=== PATIENT | female | born 1955 | race Caucasian/White ===

== ENCOUNTER → 2016-05-09 | Outpatient (REF) | payer OTHER ==
[2016-05-09 12:45] LABS: MICROSCOPIC INDICATED? MAN YES (NO)
[2016-05-09 12:52] LABS: BACTERIA, URINE SMALL AMOUNT; HYALINE CAST, URINE NONE SEEN /lpf (0-1); MICROSCOPIC EXAM PERFORMED; RBC, URINE 0-1 /hpf (0-3); SQUAMOUS EPITHELIAL CELL URINE SMALL AMOUNT /hpf (SMALL AMT)
== END ==
LOC: M LAB REF 12:15
DX: N20.0 Calculus of kidney (principal)

== ENCOUNTER → 2017-02-25 | Outpatient (REF) | payer OTHER | LOC: M LAB REF 12:52 | PROVIDERS: ATTEND Family Medicine | DX: R74.8 Abnormal levels of other serum enzymes (principal) ==

== ENCOUNTER 2017-12-24 04:57 | Emergency (ER) | payer OTHER ==
[2017-12-24 05:50] LABS: BASO # 0.1 10^3/uL (0.0-0.2); BASO % 0.5 % (0.0-1.0); EOS # 0.3 10^3/uL (0.0-0.50); EOS % 2.6 % (0.0-3.0); HEMATOCRIT 49.3 % (36.0-47.0); HEMOGLOBIN 16.5 g/dl (12.0-15.5); IMMATURE GRANULOCYTE % 0.5 % (0-3.0); LYMPH # 1.4 10^3/uL (1.5-4.5); LYMPH % 14.1 % (24.0-44.0); MEAN CORPUSCULAR HEMOGLOBIN 29.2 pg (27.0-33.0); MEAN CORPUSCULAR HGB CONC 33.5 g/dl (32.0-36.5); MEAN CORPUSCULAR VOLUME 87.3 fl (80.0-96.0); MONO # 0.6 10^3/uL (0.0-0.8); MONO % 6.1 % (0.0-5.0); NEUTROPHILS # 7.5 10^3/uL (1.8-7.7); NEUTROPHILS % 76.2 % (36.0-66.0); PLATELET COUNT, AUTOMATED 225 10^3/uL (150-450); RED BLOOD COUNT 5.65 10^6/uL (4.00-5.40); RED CELL DISTRIBUTION WIDTH 14.2 % (11.5-14.5); WHITE BLOOD COUNT 9.9 10^3/uL (4.0-10.0)
[2017-12-24 06:11] LABS: ANION GAP 9 MEQ/L (8-16); BLOOD UREA NITROGEN 15 MG/DL (7-18); CALCIUM LEVEL 9.2 MG/DL (8.8-10.2); CARBON DIOXIDE LEVEL 29 MEQ/L (21-32); CHLORIDE LEVEL 103 MEQ/L (98-107); CREATININE FOR GFR 0.78 MG/DL (0.55-1.30); GLOMERULAR FILTRATION RATE > 60.0 (>45); GLUCOSE, FASTING 100 MG/DL (70-100); POTASSIUM SERUM 3.8 MEQ/L (3.5-5.1); SODIUM LEVEL 141 MEQ/L (136-145)
[2017-12-24 06:23] LABS: AMYLASE 314 U/L (25-115); C REACTIVE PROTEIN QUANTITATIV 3.63 MG/DL (0.00-0.30)
[2017-12-24] MEDS: ACETAMINOPHEN 325 MG TAB PO (06:38)
[2017-12-24] MEDS ORDERED: ISOVUE-370 76% 100ML VIAL (Q9967) As Ordered (06:55)
[2017-12-24] MEDS ORDERED: CLINDAMYCIN 150 MG CAP PO (08:00)
== END 2017-12-24 08:19 | disposition home or self-care (01) ==
LOC: M ED 04:57
DX: K11.20 Sialoadenitis, unspecified (principal); Z79.899 Other long term (current) drug therapy; Z79.82 Long term (current) use of aspirin; Z88.0 Allergy status to penicillin
CPT/HCPCS: Q9967

== ENCOUNTER → 2018-02-19 | Outpatient (REF) | payer OTHER ==
[2018-02-19 13:59] LABS: C REACTIVE PROTEIN QUANTITATIV 1.15 MG/DL (0.00-0.30)
[2018-02-19 13:59] LABS: AMYLASE 32 U/L (25-115)
== END ==
LOC: M LAB REF 13:23
DX: R74.8 Abnormal levels of other serum enzymes (principal); R79.82 Elevated C-reactive protein (CRP)
CPT/HCPCS: 82150

== ENCOUNTER → 2018-04-21 | Outpatient (CLI) | payer OTHER ==
[~2018-04-21] MED LIST: AMLO5TAB6 PO; ASPI1TAB PO; ATOR1TAB21 PO; BYST10TA2 PO; CIPR1TAB20 PO; CLEO300C2 PO; HYDR25TAB PO; POTA10808 PO; QUIN1TAB4 PO
--- NOTE | 2018-04-21 09:35 | REP ---
Clinical: Hydronephrosis. Nephrolithiasis. Technique: Real time nelson scale ultrasound examination using curved array transducer. Findings: The right kidney is normal in contour, size, echogenicity and reniform shape measuring 10.6 x 5.4 x 5.0 cm and demonstrates a 14 mm nonobstructing calculus at the renal pelvis. No hydronephrosis, cystic or renal mass lesion. No perinephric collection. The left kidney is normal in contour, size, echogenicity and reniform shape measuring 11.1 x 5.1 x 6.6 cm. No hydronephrosis, nephrolithiasis, cystic or renal mass lesion. No perinephric collection. Bladder is normal. Impression: Nonobstructing 14 mm calculus in the right renal pelvis. No hydronephrosis. Electronically Signed by Moises Hawkins MD 04/21/2018 09:27 A
== END ==
LOC: M RAD 08:11
PROVIDERS: ATTEND Student in an Organized Health Care Education/Training Program
DX: N28.1 Cyst of kidney, acquired (principal)

== ENCOUNTER → 2020-10-17 | Outpatient (CLI) | payer OTHER ==
[~2020-10-17] MED LIST changes: +AMLO1TAB24 PO; -AMLO5TAB6 PO; -ASPI1TAB PO; +ASPI81TA26 PO; +HYDR-3490 PO; -HYDR25TAB PO
--- NOTE | 2020-10-17 10:43 | REP ---
INDICATION: KIDNEY STONE, RENAL CYST. COMPARISON: 04/21/2018 FINDINGS: Multiple ultrasonographic images of the right kidney show the right kidney to measure 10.8 x 5.7 x 4.4 cm. The renal cortical echotexture is unremarkable. There are no masses. There is good corticomedullary differentiation. There is no hydronephrosis. There are no perinephric fluid collections. Multiple ultrasonographic images of the left kidney show the left kidney to measure 11.7 x 5 x 5 cm. The renal cortical echotexture is unremarkable. There are no masses. There is good corticomedullary differentiation. There is no hydronephrosis. There are no perinephric fluid collections. There are 2 incidental sub cm sized anechoic structure seen in the inferior pole both of which exhibit posterior wall enhancement and increased through transmission and both consistent with simple cysts. IMPRESSION: Unremarkable renal ultrasonography. <Electronically signed by Herve Arteaga > 10/17/20 [id number]
== END ==
LOC: M RAD 08:44
PROVIDERS: ATTEND Urology
DX: N20.0 Calculus of kidney (principal)

== ENCOUNTER → 2021-01-03 | Outpatient (CLI) | payer OTHER ==
[2021-01-03 09:14] LABS: APPEARANCE, URINE HAZY (CLEAR); BACTERIA, URINE AUTO 1+ (NEGATIVE); BILIRUBIN, URINE AUTO NEGATIVE (NEGATIVE); BLOOD, URINE BLOOD 3+ (NEGATIVE); COLOR, URINE YELLOW (YELLOW); GLUCOSE, URINE (UA) AUTO NEGATIVE (NEGATIVE); KETONE, URINE AUTO NEGATIVE (NEGATIVE); LEUKOCYTE ESTERASE, URINE AUTO TRACE (NEGATIVE); NITRITE, URINE AUTO NEGATIVE (NEGATIVE); PROTEIN, URINE AUTO 1+ mg/dL (NEGATIVE); RBC, URINE AUTO 64 /HPF (0-3); SPECIFIC GRAVITY URINE AUTO 1.005 (1.002-1.035); SQUAMOUS EPITHELIAL CELL UR AU 6 /HPF (0-6); UROBILINOGEN, URINE AUTO 0.2 mg/dL (0.0-2.0); WBC, URINE AUTO 9 /HPF (0-3)
== END ==
LOC: M LAB 08:27
PROVIDERS: ATTEND Urology
DX: N20.0 Calculus of kidney (principal); R31.0 Gross hematuria

== ENCOUNTER 2022-05-03 21:05 | Emergency (ER) | payer MEDICARE, OTHER ==
[~2022-05-03] VITALS: Ht 154.9 cm; Wt 135.6 kg
[2022-05-03 21:06] VITALS: BP 170/90
[2022-05-03 21:43] LABS: BILIRUBIN, URINE MANUAL NEGATIVE (NEGATIVE); COLOR, URINE MANUAL YELLOW (YELLOW); GLUCOSE, URINE (UA) MANUAL NEGATIVE (NEGATIVE); KETONE, URINE MANUAL NEGATIVE (NEGATIVE); LEUKOCYTE ESTERASE, URINE MAN POSITIVE (NEGATIVE); NITRITE, URINE MANUAL NEGATIVE (NEGATIVE); PH,URINE MAN 5.5 UNITS (5.0 - 7.0); PROTEIN, URINE MANUAL 1+ mg/dL (NEGATIVE); UROBILINOGEN, URINE MANUAL NORMAL (NORMAL)
[2022-05-03 21:44] LABS: BLOOD URINE MANUAL POSITIVE (NEGATIVE)
[2022-05-03 21:51] LABS: RBC, URINE TNTC /hpf (0-3)
[2022-05-03 21:52] LABS: SQUAMOUS EPITHELIAL CELL URINE MOD AMOUNT /hpf (SMALL AMT); WBC, URINE 15-20 /hpf (0-3)
[2022-05-03 21:53] LABS: AMORPHOUS SEDIMENT, URINE SMALL AMOUNT (NEGATIVE); BACTERIA, URINE SMALL AMOUNT; HYALINE CAST, URINE NONE SEEN /lpf (0-1)
[2022-05-03 22:12] LABS: APPEARANCE, URINE MANUAL CLEAR (CLEAR)
[2022-05-04] MEDS ORDERED: NS 1,000 ML IV ONE (00:45)
[2022-05-04] MEDS ORDERED: KETOROLAC 30 MG/ML 1ML VIAL IV ONE (01:00)
[2022-05-04 01:20] LABS: BASO # 0.1 10^3/uL (0.0-0.2); BASO % 0.4 % (0.0-1.0); EOS % 0.3 % (0.0-3.0); HEMATOCRIT 48.4 % (36.0-47.0); LYMPH % 7.9 % (24.0-44.0); MEAN CORPUSCULAR HEMOGLOBIN 29.5 pg (27.0-33.0); MEAN CORPUSCULAR HGB CONC 33.1 g/dl (32.0-36.5); MEAN CORPUSCULAR VOLUME 89.3 fl (80.0-96.0); MONO # 0.4 10^3/uL (0.0-0.8); MONO % 3.1 % (2.0-8.0); NEUTROPHILS # 11.3 10^3/uL (1.5-8.5); NEUTROPHILS % 87.8 % (36.0-66.0); PLATELET COUNT, AUTOMATED 229 10^3/uL (150-450); RED BLOOD COUNT 5.42 10^6/uL (4.00-5.40); WHITE BLOOD COUNT 12.9 10^3/uL (4.0-10.0)
[2022-05-04 01:48] LABS: LIPASE 22 U/L (12-53)
[2022-05-04 01:50] LABS: ALBUMIN 3.5 G/DL (3.2-5.2); ALKALINE PHOSPHATASE 130 U/L (46-116); ALT/SGPT 32 U/L (7.0-40); AST/SGOT 35 U/L (<34); BILIRUBIN,DIRECT 0.3 MG/DL (<0.4); BILIRUBIN,TOTAL 0.9 MG/DL (0.3-1.2); BLOOD UREA NITROGEN 19 MG/DL (9-23); CALCIUM LEVEL 8.9 MG/DL (8.3-10.6); CARBON DIOXIDE LEVEL 27 MMOL/L (20-31); CHLORIDE LEVEL 103 MMOL/L (98-107); CREATININE FOR GFR 0.91 MG/DL (0.55-1.30); GLOMERULAR FILTRATION RATE > 60.0 (>45); GLUCOSE, FASTING 138 MG/DL (74-106); POTASSIUM SERUM 4.4 MMOL/L (3.5-5.1); SODIUM LEVEL 137 MMOL/L (136-145); TOTAL PROTEIN 6.9 G/DL (5.7-8.2)
[2022-05-04] MEDS ORDERED: KETO10TAB PO (03:08)
[2022-05-04] MEDS ORDERED: FLOM0.4C39 PO (03:12)
[2022-05-04] MEDS ORDERED: CEPH500C PO (03:12)
[2022-05-04] MEDS ORDERED: ONDA4TAB6 PO (03:23)
[2022-05-04] MEDS ORDERED: HYDR-3713 PO (09:05)
== END 2022-05-04 03:50 | disposition home or self-care (01) ==
LOC: M ED 21:05
DX: N20.0 Calculus of kidney (principal); I10 Essential (primary) hypertension; F41.9 Anxiety disorder, unspecified; F17.200 Nicotine dependence, unspecified, uncomplicated; Z87.442 Personal history of urinary calculi; Z86.79 Personal history of other diseases of the circulatory system; Z88.0 Allergy status to penicillin; Z79.2 Long term (current) use of antibiotics; Z79.810 Long term (current) use of selective estrogen receptor modulators (SERMs); Z79.83 Long term (current) use of bisphosphonates; Z79.811 Long term (current) use of aromatase inhibitors; Z79.899 Other long term (current) drug therapy
CPT/HCPCS: 74176; 80048; 80076; 81000; 83690; 85025; 93041; 96374; 99284; J1885

== ENCOUNTER 2023-05-10 08:47 | Emergency (ER) | payer MEDICARE, OTHER ==
[~2023-05-10] VITALS: Ht 154.9 cm; Wt 131.4 kg
[2023-05-10 08:47] VITALS: BP 150/90; TEMP 97.7; O2SAT 95
[~2023-05-10 08:47] MED LIST changes: +CEPH500C PO; +FLOM0.4C39 PO; +HYDR-3713 PO; +KETO10TAB PO; +ONDA4TAB6 PO
== END 2023-05-10 08:59 | disposition left against medical advice (07) ==
LOC: M ED 08:47
DX: Z53.21 Procedure and treatment not carried out due to patient leaving prior to being seen by health care provider (principal)

== ENCOUNTER → 2024-08-11 | Outpatient (REF) | payer MEDICARE, OTHER ==
[~2024-08-11] MED LIST changes: -BYST10TA2 PO; +BYST1TAB3 PO; -FLOM0.4C39 PO; +ONDA-282 PO; -ONDA4TAB6 PO; -POTA10808 PO; +POTA10809 PO; +TAMS-18 PO
== END ==
LOC: M LAB REF 11:59
PROVIDERS: ATTEND Family Medicine
DX: E07.9 Disorder of thyroid, unspecified (principal)